=== PATIENT | female | born 1955 | race Caucasian/White ===

== ENCOUNTER → 2016-08-08 | Outpatient (CLI) | payer OTHER | LOC: FIMAGING 11:25 | DX: Z12.31 Encounter for screening mammogram for malignant neoplasm of breast (principal) | CPT/HCPCS: G0202 ==

== ENCOUNTER → 2016-10-01 | Outpatient (CLI) | payer OTHER | LOC: FIMAGING 13:52 | PROVIDERS: ATTEND Family Medicine | DX: Z13.820 Encounter for screening for osteoporosis (principal); M81.0 Age-related osteoporosis without current pathological fracture; Z78.0 Asymptomatic menopausal state ==

== ENCOUNTER → 2016-10-07 | Outpatient (CLI) | payer OTHER | LOC: FIMAGING 15:17 | PROVIDERS: ATTEND Family Medicine | DX: M25.552 Pain in left hip (principal); M25.551 Pain in right hip ==

== ENCOUNTER 2017-01-28 13:38 | Emergency (ER) | payer OTHER ==
[2017-01-28] MEDS ORDERED: ONDANSETRON 4 MG/2 ML VIAL IVP ONE (14:59)
--- NOTE | 2017-01-28 15:02 | EDPHY ---
H & P Stated Complaint: cough, congestion, nausea since Thursday Time Seen by Provider: 01/28/17 14:49 HPI/ROS: CHIEF COMPLAINT: Cough HISTORY OF PRESENT ILLNESS: This is a generally healthy 61-year-old female presents with 4 days of cough. She does not feel short of breath. She has not had chest pain. In addition she notes mild myalgias and fatigue. She has had nausea with 1 episode of tussive emesis and 1 episode of vomiting after drinking robin lexi today. She has not had diarrhea. She does not have abdominal pain but notes some abdominal discomfort related to the nausea. She has not had fever. REVIEW OF SYSTEMS: A ten point review of systems was performed and is negative with the exception of the items mentioned in the HPI. Past medical history: Negative Past surgical history: section Family history: Mother with Alzheimer's Social history: She does not use tobacco products. She denies alcohol socially. General Appearance: Alert. Vital signs reviewed. Eyes: Pupils equal and round, no conjunctival injection, no discharge. Anicteric. ENT, Mouth: Mucous membranes are moist, no oropharyngeal erythema or edema. Neck: No lymphadenopathy, supple. Respiratory: Lungs are clear to auscultation; no wheezes, rales, or rhonchi. Cardiovascular: Regular rate and rhythm; no murmur, rub, or gallop. Gastrointestinal: Abdomen is soft and nontender, no masses or organomegaly, bowel sounds normal. Skin: Warm and dry, no rashes on exposed skin, normal color. Back: Nontender to palpation over the thoracolumbar spine. No CVAT. Extremities: No lower extremity edema, no calf tenderness or swelling. Neurological: Alert and oriented. Moving all four extremities easily and equally. Psychiatric: Normal affect. - Personal History Current Tetanus/Diphtheria Vaccine: Unsure Current Tetanus Diphtheria and Acellular Pertussis (TDAP): Unsure - Medical/Surgical History Hx Asthma: No Hx Chronic Respiratory Disease: No Hx Diabetes: No Hx Cardiac Disease: No Hx Renal Disease: No Hx Cirrhosis: No Hx Alcoholism: No Hx HIV/AIDS: No Hx Splenectomy or Spleen Trauma: No Other PMH: - Social History Smoking Status: Never smoked Constitutional: Initial Vital Signs Temperature (C) 36.6 C 01/28/17 13:41 Heart Rate 89 01/28/17 13:41 Respiratory Rate 18 01/28/17 13:41 Blood Pressure 130/76 H 01/28/17 13:41 O2 Sat (%) 96 01/28/17 13:41 O2 Delivery Mode Room Air Allergies/Adverse Reactions: No Known Allergies Allergy (Verified 01/28/17 13:40) Home Medications: Medication Instructions Recorded HYDROcodone/HOMATROPINE HYCODA 1 tsp PO Q4-6PRN PRN #120 ml 01/28/17 [Hycodan Syrup (*)] Ondansetron Odt [Zofran Odt 4 mg 4 mg PO Q4 PRN #10 tab 01/28/17 (RX)] Medical Decision Making ED Course/Re-evaluation: She has continued nausea and has not been able to eat and drink much today. Will give IV Zofran and p.o. challenge. Discussed testing for respiratory pathogens. She understands that she is 4 days into this illness in that if she has influenza there would be no treatment recommended. She prefers to proceed with symptomatic treatment and no further testing. Re-evaluated at 4:00 p.m.. She has tolerated ice chips and will try some saltine crackers. If she is successful with a p.o. challenge she will be discharged home. She is given a prescription for Hycodan and for Zofran to treat her symptoms. She will follow up with her primary care physician as needed. 4:20 p.m.: No vomiting. She continues with a coarse cough. On reexamination her lungs remain clear. She is comfortable returning home. I have reviewed the danger signs that should prompt her to be re-evaluated. Differential Diagnosis: I considered a differential diagnosis including but not limited to pulmonary infectious process, influenza, COPD, asthma, pulmonary embolus, gastritis, gastroenteritis. - Data Points Medications Given: Discontinued Medications Ondansetron HCl (Zofran) 4 mg IVP EDNOW ONE Stop: 01/28/17 15:00 Last Admin: 01/28/17 15:29 Dose: 4 mg Departure - Departure Disposition: Home, Routine, Self-Care Clinical Impression: Acute upper respiratory infection Condition: Good Instructions: Upper Respiratory Infection (ED) Additional Instructions: Continue to get lots of rest and drink plenty fluids. Use the Zofran as needed for nausea or vomiting. You can use this medication under tongue every 4 hours if needed. Use a cough medicine as prescribed. If you develop new or concerning symptoms you should be re-evaluated. Referrals: PERCY GONZALEZ [Primary Care Provider] - As per Instructions Prescriptions: HYDROcodone/HOMATROPINE HYCODA [Hycodan Syrup (*)] 1 tsp PO Q4-6PRN PRN #120 ml PRN Reason: Cough, Severe Ondansetron Odt [Zofran Odt 4 mg (RX)] 4 mg PO Q4 PRN #10 tab PRN Reason: nausea
[2017-01-28 16:32] VITALS: BP 125/76; PULSE 85; RESP 16; TEMP 98.4; O2SAT 97
== END 2017-01-28 16:29 | disposition home or self-care (01) ==
DX: J06.9 Acute upper respiratory infection, unspecified (principal)
CPT/HCPCS: 96374; J2405

== ENCOUNTER → 2018-06-23 | Outpatient (CLI) | payer MEDICARE, OTHER | LOC: FIMAGING 08:56 | PROVIDERS: ATTEND Family Medicine | DX: Z13.820 Encounter for screening for osteoporosis (principal); M81.0 Age-related osteoporosis without current pathological fracture; Z78.0 Asymptomatic menopausal state ==